=== PATIENT | male | born 1965 | race Caucasian/White ===

== ENCOUNTER 2022-11-02 06:32 | Day surgery (SDC) | payer MEDICARE, MEDICAID, SELFPAY ==
--- NOTE | 2022-11-01 14:10 | HO.ANESPROP2 ---
Documented by User: Shelly Urbina NP 11/01/22 14:10 HPI - Anesthesia Eval Consult details Narrative: 56yo M for Upper Endoscopy with Balloon Dilitation Daily prednisone PMFSH Past Medical History Medical History Ankylosing spondylitis Bilateral cataracts Bipolar disease, chronic Crohn's disease Diabetes Surgical History Surgical History H/O foot surgery H/O left knee surgery History of right hip replacement Social History Social History Patient Tobacco Use Status: Never used Tobacco Meds Allergies Allergy/AdvReac Type Severity Reaction Status Date / Time canagliflozin [From Invokana] Allergy Unknown Verified 11/02/22 06:58 diazepam [From Valium] Allergy Hallucinati Verified 11/02/22 06:58 ons metformin Allergy Hives Verified 11/02/22 06:58 Home Medications Medication Instructions Recorded Confirmed Last Taken Type aripiprazole 15 mg tablet 15 mg PO DAILY 11/01/22 11/01/22 11/02/22 History atorvastatin 80 mg tablet 80 mg PO DAILY 11/01/22 11/01/22 11/02/22 History dulaglutide 1.5 mg/0.5 mL 1.5 mg subcut QWEEK 11/01/22 11/02/22 10/31/22 History subcutaneous pen injector (Trulicity) gabapentin 600 mg tablet 600 mg PO TID 11/01/22 11/01/22 11/02/22 History glimepiride 4 mg tablet 4 mg PO QAM 11/01/22 11/01/22 Unknown History insulin detemir U-100 100 unit/mL 52 unit subcut BEDTIME 11/01/22 11/02/22 Unknown History subcutaneous solution (Levemir U-100 Insulin) insulin lispro 100 unit/mL subcut 11/01/22 Unknown History subcutaneous pen lisinopril 2.5 mg tablet 2.5 mg PO DAILY 11/01/22 11/01/22 Unknown History prednisone 10 mg tablet 10 mg PO DAILY 11/01/22 11/01/22 11/02/22 History sitagliptin phosphate 100 mg 100 mg PO DAILY 11/01/22 11/01/22 Unknown History tablet (Januvia) tamsulosin 0.4 mg capsule 0.8 mg PO BEDTIME 11/01/22 11/01/22 11/02/22 History venlafaxine 150 mg 150 mg PO DAILY 11/01/22 11/01/22 11/02/22 History capsule,extended release 24 hr Exam Exam Date and Time: November 01, 2022 1410 Assessment and Plan Assessment Anesthesia Assessment: Chart Reviewed Documented by User: Martha Alvares MD 11/02/22 08:29 HPI - Anesthesia Eval Consult details Narrative: 56yo M for Upper Endoscopy with Balloon Dilatation Daily prednisone PMFSH Active Problems Active Problems: H/o fall with neck fracture. Neck fixed in flexion Diabetes- not very compliant with medication. States cannot tolerate. Sugars run about 250mg/dL T11 fracture with back pain Hypercholesterolaemia BPH Past Medical History Medical History Ankylosing spondylitis Bilateral cataracts Bipolar disease, chronic Crohn's disease Diabetes Family History Family history of problems with anesthesia: No Surgical History Surgical History H/O foot surgery H/O left knee surgery History of right hip replacement History of Problems with Anesthesia: No Social History Social History Patient Tobacco Use Status: Never used Tobacco Meds Allergies Allergy/AdvReac Type Severity Reaction Status Date / Time canagliflozin [From Invokana] Allergy Unknown Verified 11/02/22 06:58 diazepam [From Valium] Allergy Hallucinati Verified 11/02/22 06:58 ons metformin Allergy Hives Verified 11/02/22 06:58 Home Medications Medication Instructions Recorded Confirmed Last Taken Type aripiprazole 15 mg tablet 15 mg PO DAILY 11/01/22 11/01/22 11/02/22 History atorvastatin 80 mg tablet 80 mg PO DAILY 11/01/22 11/01/2211/02/23 History dulaglutide 1.5 mg/0.5 mL 1.5 mg subcut QWEEK 11/01/22 11/02/22 10/31/22 History subcutaneous pen injector (Trulicity) gabapentin 600 mg tablet 600 mg PO TID 11/01/22 11/01/22 11/02/22 History glimepiride 4 mg tablet 4 mg PO QAM 11/01/22 11/01/22 Unknown History insulin detemir U-100 100 unit/mL 52 unit subcut BEDTIME 11/01/22 11/02/22 Unknown History subcutaneous solution (Levemir U-100 Insulin) insulin lispro 100 unit/mL subcut 11/01/22 Unknown History subcutaneous pen lisinopril 2.5 mg tablet 2.5 mg PO DAILY 11/01/22 11/01/22 Unknown History prednisone 10 mg tablet 10 mg PO DAILY 11/01/22 11/01/22 11/02/22 History sitagliptin phosphate 100 mg 100 mg PO DAILY 11/01/22 11/01/22 Unknown History tablet (Januvia) tamsulosin 0.4 mg capsule 0.8 mg PO BEDTIME 11/01/22 11/01/22 11/02/22 History venlafaxine 150 mg 150 mg PO DAILY 11/01/22 11/01/22 11/02/22 History capsule,extended release 24 hr Exam Height,Weight and Vital Signs: Height 5 ft 4 in Weight 78.925 kg Vital Signs Temp Pulse Resp BP Pulse Ox O2 Del Method 11/02/22 07:01 97.8 F 96 16 122/78 97 Room Air Pertinent Lab Results Pertinent Lab Results: Lab Results 11/02/22 Range/Units 07:02 POC Glucose 289 H (60-115) mg/dL Airway Mallampati Class: II TM Dist: >3cm Neck ROM: Poor (Neck fixed in flexion. No movement ) Loose/Missing/Broken Teeth: Yes (Edentulous) Heart: RRR Lungs: CTAB Assessment and Plan Assessment Anesthesia Assessment: Anesthesia Plan Discussed Final Anesthetic Review Family History of Problems with Anesthesia: No History of Problems with Anesthesia: No NPO: Yes ASA Class: III Final Preanesthetic Review: No Changes in Pt Med Stat, Meds/Allgs Chart Reviewed, Consent Obtained/Reviewed, Anes Risks/Benef Reviewed and DNR Form (If Appl.) Patient Risk: Intermediate Procedure Risk: Low Assessment/Block/Sedation in SS: Assess/Block/Sedation-SS Anesthetic Plan Anesthetic Plan: MAC: Disposition: Standard PACU
[2022-11-02 07:01] VITALS: BP 122/78; PULSE 96; RESP 16; TEMP 36.6; O2SAT 97; BMI 29.9
[2022-11-02 07:06] LABS: Glucose, Whole Blood 289 mg/dL (60-115)
[2022-11-02] MEDS: Lactated Ringers 1,000 ML 100 ML IVCONT (07:19)
[2022-11-02 08:02] VITALS: BP 105/67; PULSE 85; RESP 14; TEMP 36.6; O2SAT 100
--- NOTE | 2022-11-02 08:12 | PM.OP ---
Brief Operative Note Date of Service: 11/02/22 Pre-op diagnosis: Dysphagia Post-op diagnosis: other (Esophageal stricture) Procedure: EGD with Balloon Dilation Surgeon: Billy Patiño Anesthesia: MAC Was an Information Systems Security Manager used for this Procedure?: No Estimated blood loss (mL): 2.0 Pathology: none sent Condition: stable Disposition: PACU
[2022-11-02 08:17] VITALS: BP 118/78; PULSE 92; RESP 13; TEMP 36.6; O2SAT 94
--- NOTE | 2022-11-02 11:16 | OP_ITS ---
DATE OF SERVICE: 11/02/2022 SURGEON: Billy Patiño MD PREOPERATIVE DIAGNOSIS: Dysphagia. POSTOPERATIVE DIAGNOSIS: PROCEDURE PERFORMED: Esophagogastroduodenoscopy with balloon dilation. ESTIMATED BLOOD LOSS: COMPLICATIONS: ANESTHESIA: Medication used; monitored anesthesia care. ASSISTANTS: SPECIMENS: POSTOPERATIVE DIAGNOSES: Dysphagia, esophageal stricture, small hiatal hernia, question of esophageal dysmotility. INDICATION: The patient presents for evaluation of dysphagia. Full consent has been obtained from him for this, including risks of bleeding and perforation. DESCRIPTION OF PROCEDURE: The patient was placed in the left lateral decubitus position. The Olympus videogastroscope was passed in the posterior oropharynx and upper esophagus under direct vision. The scope was passed slowly to the distal esophagus. The gastroesophageal junction appeared at 36 cm. This area was notable for what appeared to be a mild nonobstructing fibrotic esophageal stricture which allowed easy passage of the scope into the stomach, although I did sense some hesitancy to pass the stricture. There was no ulceration nor mass at the level of the gastroesophageal junction. There was some very minimal irregularity consistent with reflux, but not evidence of esophagitis nor any definitive evidence of Ramirez's mucosa. The scope was advanced to the pylorus and the duodenum was cannulated to the descending portion. The duodenum including the bulb appeared normal without mass or ulceration. The scope was withdrawn back in the stomach. The gastric antrum and body had some areas of erythema and edema, but no erosions or ulcerations. There was good peristalsis. The scope was retroflexed visualizing the proximal stomach carefully, which appeared normal, without any sign of mass or ulceration. The scope was straightened and withdrawn back in the esophagus. Of note, the esophagus was carefully inspected and the mucosa appeared normal without any signs of esophageal rings. However, the esophageal motility did appear to be somewhat diminished and there was some mild tortuosity and dilatation of the esophagus. There was also some detained small food particles and bits of medication. I did use a [place] [employer] incremental balloon to dilate the gastroesophageal junction from a 15 mm to 16.5 mm to 18 mm balloon for between 30 and 60 seconds each at the recommended pressure. Post-dilation, there was definitely some disruption of the stricture and heme noted at the gastroesophageal junction. No further dilation was performed. The scope was withdrawn through the remainder of the esophagus, which was otherwise negative for other abnormalities. The scope was withdrawn from the patient. He was tolerated the procedure well and was returned to the recovery area in stable condition. IMPRESSION: 1. 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 2. Small hiatal hernia. 3. Possible component of esophageal dysmotility. 4. Mild chronic gastritis. PLAN: The patient will start omeprazole 40 mg daily. He has been advised not to use any aspirin or NSAIDs for at least 1 week. I have advised him to check in with me within the next week or two and if his dysphagia is persisting I would then plan to schedule him for esophageal motility studies. If things have improved and remain stable, he will see me in the Fall for a followup visit both in regard to this and his underlying Crohn's disease. MD LORENZA Rao/KANNAN / [id number] MTDD
== END 2022-11-02 09:10 | disposition home or self-care (01) ==
PROVIDERS: PCP Physician Assistant Medical; Visit Provider Internal Medicine
PROC: (CPT 43249; principal; 2022-11-02 07:30)
DX: R13.19 Other dysphagia (principal); K22.2 Esophageal obstruction; K29.50 Unspecified chronic gastritis without bleeding; K44.9 Diaphragmatic hernia without obstruction or gangrene; K50.80 Crohn's disease of both small and large intestine without complications; E78.5 Hyperlipidemia, unspecified; E11.9 Type 2 diabetes mellitus without complications; Z79.4 Long term (current) use of insulin; Z79.899 Other long term (current) drug therapy; Z79.52 Long term (current) use of systemic steroids; Z66 Do not resuscitate
CPT/HCPCS: 43249; 82947; C1726